=== PATIENT | male | born 1945 | race Caucasian/White ===

== ENCOUNTER → 2019-09-01 12:04 | Outpatient (BNVA) | payer MEDICARE, OTHER, SELFPAY | PROVIDERS: Family Provider Family Medicine; PCP Family Medicine; Visit Provider Nurse Practitioner Family | DX: R97.20 Elevated prostate specific antigen [PSA] (principal); N40.1 Benign prostatic hyperplasia with lower urinary tract symptoms | CPT/HCPCS: 80048; 81001; 84153 ==

== ENCOUNTER → 2019-09-08 14:52 | Outpatient (BNVA) | payer MEDICARE, OTHER, SELFPAY | PROVIDERS: Family Provider Family Medicine; PCP Family Medicine; Visit Provider Urology | DX: N40.1 Benign prostatic hyperplasia with lower urinary tract symptoms (principal); R33.9 Retention of urine, unspecified; R97.20 Elevated prostate specific antigen [PSA]; F17.290 Nicotine dependence, other tobacco product, uncomplicated | CPT/HCPCS: 81001 ==

== ENCOUNTER → 2020-01-20 08:57 | Outpatient (BNVA) | payer MEDICARE, OTHER, SELFPAY | PROVIDERS: Family Provider Family Medicine; PCP Family Medicine; Visit Provider Urology | DX: N40.1 Benign prostatic hyperplasia with lower urinary tract symptoms (principal); R33.9 Retention of urine, unspecified; R97.20 Elevated prostate specific antigen [PSA] | CPT/HCPCS: 81001 ==

== ENCOUNTER → 2020-06-20 08:46 | Outpatient (BNVA) | payer MEDICARE, OTHER, SELFPAY | PROVIDERS: Family Provider Family Medicine; PCP Family Medicine; Visit Provider Urology | DX: R33.9 Retention of urine, unspecified (principal); N40.1 Benign prostatic hyperplasia with lower urinary tract symptoms; R97.20 Elevated prostate specific antigen [PSA] | CPT/HCPCS: 80048; 81003 ==

== ENCOUNTER → 2020-12-20 08:50 | Outpatient (BNVA) | payer MEDICARE, OTHER, SELFPAY | PROVIDERS: Family Provider Family Medicine; Visit Provider Urology | DX: R97.20 Elevated prostate specific antigen [PSA] (principal); N40.1 Benign prostatic hyperplasia with lower urinary tract symptoms; R33.9 Retention of urine, unspecified | CPT/HCPCS: 81003; G0103 ==

== ENCOUNTER 2021-12-21 08:43 | Outpatient (CLI) | payer MEDICARE, OTHER, SELFPAY | END 2021-12-21 08:44 | disposition home or self-care (01) | PROVIDERS: Family Provider Family Medicine; Visit Provider Urology | DX: R97.20 Elevated prostate specific antigen [PSA] (principal); R80.0 Isolated proteinuria; N40.1 Benign prostatic hyperplasia with lower urinary tract symptoms; R33.9 Retention of urine, unspecified | CPT/HCPCS: 51741; 51798; 81003; 84153; 99213 ==

== ENCOUNTER 2022-12-14 12:06 | Outpatient (CLI) | payer MEDICARE, OTHER, SELFPAY ==
[2022-12-14 13:24] LABS: Prostate Specific AG Urology 0.89 ng/mL (0-4)
== END 2022-12-14 12:07 | disposition home or self-care (01) ==
LOC: LAB 12:11
PROVIDERS: PCP Electrodiagnostic Medicine; Visit Provider Urology
DX: R97.20 Elevated prostate specific antigen [PSA] (principal)
CPT/HCPCS: 36415; 84153

== ENCOUNTER → 2022-12-20 08:40 | Outpatient (BNVA) | payer MEDICARE, OTHER, SELFPAY | PROVIDERS: PCP Electrodiagnostic Medicine; Visit Provider Urology | DX: R97.20 Elevated prostate specific antigen [PSA] (principal); R33.9 Retention of urine, unspecified; N40.1 Benign prostatic hyperplasia with lower urinary tract symptoms | CPT/HCPCS: 51741; 51798; 81003; 99213 ==

== ENCOUNTER 2023-03-20 08:27 | Oncology outpatient (recurring) (ONCR) | payer OTHER, SELFPAY ==
[2023-03-20 09:38] LABS: Basophils # 0.1 10^3/uL (0.0-0.1); Basophils % 1.6 %; Eosinophils # 0.2 10^3/uL (0.0-0.8); Lymphocytes # 1.8 10^3/uL (0.8-4.8); Lymphocytes % 20.5 %; Mean Corpuscular HGB Conc 31.1 g/dL (30-55); Mean Corpuscular Hemoglobin 30.5 pg (27-33); Mean Corpuscular Volume 98.2 fl (82-101); Monocytes # 0.8 10^3/uL (0.2-0.9); Monocytes % 8.6 %; Neutrophils # 5.53 10^3/uL (1.8-7.7); Neutrophils % 62.3 %; Nucleated Red Blood Cells # 0.2 /100WBC; Nucleated Red Blood Cells % 1.7 %; Platelet Count 46 10^3/cmm (157-399); Red Blood Count 3.87 10^6/uL (3.85-5.65); Red Cell Distribution Width 21.1 % (12.1-15.1); White Blood Count 8.87 10^3/uL (3.29-11.43)
== END 2023-03-21 23:59 | disposition home or self-care (01) ==
PROVIDERS: Internal Medicine Medical Oncology; PCP Electrodiagnostic Medicine; Visit Provider Internal Medicine Medical Oncology
DX: D69.6 Thrombocytopenia, unspecified (principal); Z79.899 Other long term (current) drug therapy; R97.20 Elevated prostate specific antigen [PSA]; N40.1 Benign prostatic hyperplasia with lower urinary tract symptoms; R33.9 Retention of urine, unspecified
CPT/HCPCS: 36415; 85025; 99203

== ENCOUNTER 2023-03-27 06:54 | Outpatient (CLI) | payer OTHER, SELFPAY ==
--- NOTE | 2023-03-27 07:15 | US_ITS ---
WS: [id number] Limited abdomen ultrasound. HISTORY: Evaluate spleen. HISTORY: Thrombocytopenia. Spleen is normal size measuring 11.3 x 4.0 x 11.0 cm. No mass. Normal concavity at the hilum. There i s an adjacent splenule at the splenic hilum. LEFT kidney normal size measuring 12.3 cm in length. There is a simple cyst measuring 2.0 x 2.5 x 2.7 cm from the mid kidney. No obstruction of the kidney. No adjacent ascites. IMPRESSION: 1. Normal spleen. 2. Simple LEFT renal cyst.
== END 2023-03-27 06:55 | disposition home or self-care (01) ==
PROVIDERS: PCP Electrodiagnostic Medicine; Visit Provider Internal Medicine Medical Oncology
DX: D69.6 Thrombocytopenia, unspecified (principal); N28.1 Cyst of kidney, acquired
CPT/HCPCS: 76705

== ENCOUNTER 2023-04-03 14:39 | Oncology outpatient (recurring) (ONCR) | payer OTHER, SELFPAY | END 2023-04-20 23:59 | disposition home or self-care (01) | PROVIDERS: PCP Electrodiagnostic Medicine; Visit Provider Internal Medicine Medical Oncology | DX: D69.6 Thrombocytopenia, unspecified (principal); D64.9 Anemia, unspecified; R76.8 Other specified abnormal immunological findings in serum; M25.50 Pain in unspecified joint | CPT/HCPCS: 99214 ==

== ENCOUNTER 2023-05-01 13:36 | Oncology outpatient (recurring) (ONCR) | payer OTHER, SELFPAY ==
[2023-05-01 13:55] VITALS: BP 134/61; PULSE 68; RESP 16; TEMP 36.6; O2SAT 93
[2023-05-01 14:12] LABS: Basophils # 0.1 10^3/uL (0.0-0.1); Basophils % 1.7 %; Eosinophils # 0.1 10^3/uL (0.0-0.8); Eosinophils % 1.4 %; Hematocrit 37.2 % (37-53); Lymphocytes # 1.6 10^3/uL (0.8-4.8); Lymphocytes % 22.6 %; Mean Corpuscular HGB Conc 30.9 g/dL (30-55); Mean Corpuscular Hemoglobin 30.4 pg (27-33); Mean Corpuscular Volume 98.4 fl (82-101); Monocytes # 0.6 10^3/uL (0.2-0.9); Monocytes % 8.3 %; Neutrophils # 4.35 10^3/uL (1.8-7.7); Neutrophils % 61.9 %; Nucleated Red Blood Cells # 0.1 /100WBC; Platelet Count 73 10^3/cmm (157-399); Red Blood Count 3.78 10^6/uL (3.85-5.65); Red Cell Distribution Width 21.2 % (12.1-15.1); White Blood Count 7.03 10^3/uL (3.29-11.43)
[2023-05-01 14:37] LABS: Alanine Aminotransferase 20 U/L (0-41); Albumin Level 4.4 g/dL (3.5-5.2); Alkaline Phosphatase 55 U/L (40-130); Aspartate Amino Transferase 18 U/L (0-40); Blood Urea Nitrogen 13 mg/dL (8-23); C Reactive Protein 3.5 mg/L (0.0-4.9); Calcium 9.1 mg/dL (8.5-10.5); Carbon Dioxide 27 mmol/L (22-29); Chloride 103 mmol/L (98-107); Ferritin 259 ng/mL (30-400); Globulin 2.9 g/dL (1.3-4.6); Glucose 95 mg/dL (65-115); Iron 65 ug/dL (59-158); Osmolality Calculated 290 mOsm/kg (285-295); Percent Saturation 23.6 % (20-50); Sodium 140 mmol/L (136-145); Total Bilirubin 0.5 mg/dL (0.15-1.2); Total Iron Binding Capacity 275 mcg/dl; Total Protein 7.3 g/dL (6.6-8.7); Unsaturated Iron Binding 210 ug/dL (112-347)
[2023-05-01 14:47] LABS: Slide Review Slide Review Perform
[2023-05-01 14:49] LABS: Vitamin B12 1608 pg/mL (232-1245)
[2023-05-01 14:51] LABS: Erythrocyte Sedimentation Rate 17 mm/hr (0-10)
[2023-05-01 14:55] LABS: Anion Gap 14.2 (5-19); Potassium 4.2 mmol/L (3.5-5.1)
[2023-05-01 14:56] LABS: Lactate Dehydrogenase 336 U/L (135-225)
[2023-05-01 15:11] LABS: LAB Peripheral Smear Sent for Review
== END 2023-05-21 23:59 | disposition home or self-care (01) ==
PROVIDERS: PCP Electrodiagnostic Medicine; Visit Provider Internal Medicine Medical Oncology
DX: D64.9 Anemia, unspecified (principal); D69.6 Thrombocytopenia, unspecified
CPT/HCPCS: 36415; 80053; 82607; 82728; 83540; 83550; 83615; 85025; 85651; 86140; 99214

== ENCOUNTER 2023-08-06 11:07 | Oncology outpatient (recurring) (ONCR) | payer OTHER, SELFPAY ==
[2023-08-06 11:10] VITALS: BP 126/63; PULSE 92; RESP 16; TEMP 36.6; O2SAT 94
[2023-08-06 11:19] LABS: Basophils # 0.1 10^3/uL (0.0-0.1); Basophils % 1.3 %; Eosinophils # 0.1 10^3/uL (0.0-0.8); Eosinophils % 1.4 %; Hematocrit 38.1 % (37-53); Lymphocytes % 25.1 %; Mean Corpuscular HGB Conc 30.7 g/dL (30-55); Mean Corpuscular Hemoglobin 30.4 pg (27-33); Monocytes # 0.5 10^3/uL (0.2-0.9); Monocytes % 6.3 %; Neutrophils # 5.05 10^3/uL (1.8-7.7); Neutrophils % 63.8 %; Nucleated Red Blood Cells # 0.1 /100WBC; Nucleated Red Blood Cells % 1.3 %; Platelet Count 87 10^3/cmm (157-399); Red Blood Count 3.85 10^6/uL (3.85-5.65); Red Cell Distribution Width 21.4 % (12.1-15.1); White Blood Count 7.92 10^3/uL (3.29-11.43)
[2023-08-06 11:32] LABS: Slide Review Slide Review Perform
[2023-08-06 11:35] LABS: Alanine Aminotransferase 13 U/L (0-41); Albumin Level 4.1 g/dL (3.5-5.2); Alkaline Phosphatase 62 U/L (40-130); Anion Gap 12.4 (5-19); Aspartate Amino Transferase 17 U/L (0-40); Blood Urea Nitrogen 15 mg/dL (8-23); C Reactive Protein 3.9 mg/L (0.0-4.9); Calcium 9.7 mg/dL (8.5-10.5); Carbon Dioxide 28 mmol/L (22-29); Chloride 104 mmol/L (98-107); Globulin 3.7 g/dL (1.3-4.6); Glucose 104 mg/dL (65-115); Lactate Dehydrogenase 342 U/L (135-225); Osmolality Calculated 291 mOsm/kg (285-295); Potassium 4.4 mmol/L (3.5-5.1); Sodium 140 mmol/L (136-145); Total Bilirubin 0.4 mg/dL (0.15-1.2); Total Protein 7.8 g/dL (6.6-8.7)
[2023-08-06 12:21] LABS: Erythrocyte Sedimentation Rate 24 mm/hr (0-10)
== END 2023-08-21 23:59 | disposition home or self-care (01) ==
PROVIDERS: PCP Electrodiagnostic Medicine; Visit Provider Internal Medicine Medical Oncology
DX: D64.9 Anemia, unspecified (principal); D69.6 Thrombocytopenia, unspecified; M25.50 Pain in unspecified joint; R76.8 Other specified abnormal immunological findings in serum; Z79.899 Other long term (current) drug therapy
CPT/HCPCS: 36415; 80053; 83615; 85025; 85651; 86140; 99213

== ENCOUNTER 2023-10-24 12:13 | Oncology outpatient (recurring) (ONCR) | payer OTHER, SELFPAY ==
[2023-10-24 12:41] LABS: Basophils # 0.2 10^3/uL (0.0-0.1); Basophils % 1.8 %; Eosinophils # 0.1 10^3/uL (0.0-0.8); Eosinophils % 1.3 %; Hematocrit 36.8 % (37-53); Lymphocytes % 24.6 %; Mean Corpuscular HGB Conc 32.1 g/dL (30-55); Mean Corpuscular Volume 96.6 fl (82-101); Monocytes # 0.6 10^3/uL (0.2-0.9); Monocytes % 7.5 %; Neutrophils # 4.96 10^3/uL (1.8-7.7); Neutrophils % 60.9 %; Nucleated Red Blood Cells # 0.2 /100WBC; Nucleated Red Blood Cells % 2.1 %; Platelet Count 71 10^3/cmm (157-399); Red Blood Count 3.81 10^6/uL (3.85-5.65); Red Cell Distribution Width 20.9 % (12.1-15.1); White Blood Count 8.16 10^3/uL (3.29-11.43)
[2023-10-24 12:58] LABS: Alkaline Phosphatase 58 U/L (40-130); Anion Gap 14.3 (5-19); Aspartate Amino Transferase 14 U/L (0-40); Blood Urea Nitrogen 16 mg/dL (8-23); Carbon Dioxide 26 mmol/L (22-29); Chloride 100 mmol/L (98-107); Globulin 3.4 g/dL (1.3-4.6); Glucose 98 mg/dL (65-115); Lactate Dehydrogenase 337 U/L (135-225); Osmolality Calculated 283 mOsm/kg (285-295); Potassium 4.3 mmol/L (3.5-5.1); Sodium 136 mmol/L (136-145); Total Bilirubin 0.5 mg/dL (0.15-1.2); Total Protein 7.4 g/dL (6.6-8.7)
[2023-10-24 13:03] LABS: Slide Review Slide Review Perform
[2023-10-24 13:09] LABS: Alanine Aminotransferase < 5 U/L (0-41)
== END 2023-11-19 23:59 | disposition home or self-care (01) ==
PROVIDERS: PCP Electrodiagnostic Medicine; Visit Provider Internal Medicine Medical Oncology
DX: D64.9 Anemia, unspecified (principal); D69.6 Thrombocytopenia, unspecified; M25.50 Pain in unspecified joint; R76.8 Other specified abnormal immunological findings in serum; Z79.899 Other long term (current) drug therapy; Z53.9 Procedure and treatment not carried out, unspecified reason
CPT/HCPCS: 36415; 80053; 83615; 85025; 99213

== ENCOUNTER 2024-01-13 11:49 | Oncology outpatient (recurring) (ONCR) | payer OTHER, SELFPAY ==
[2024-01-13 12:13] LABS: Hematocrit 34.3 % (37-53); Mean Corpuscular HGB Conc 31.8 g/dL (30-55); Mean Corpuscular Hemoglobin 31.1 pg (27-33); Mean Corpuscular Volume 97.7 fl (82-101); Platelet Count 54 10^3/cmm (157-399); Red Blood Count 3.51 10^6/uL (3.85-5.65); Red Cell Distribution Width 20.9 % (12.1-15.1); White Blood Count 8.01 10^3/uL (3.29-11.43)
[2024-01-13 12:33] LABS: Alanine Aminotransferase 15 U/L (0-41); Albumin Level 4.3 g/dL (3.5-5.2); Alkaline Phosphatase 54 U/L (40-130); Anion Gap 14.3 (5-19); Aspartate Amino Transferase 15 U/L (0-40); Blood Urea Nitrogen 14 mg/dL (8-23); C Reactive Protein 3.6 mg/L (0.0-4.9); Carbon Dioxide 26 mmol/L (22-29); Chloride 104 mmol/L (98-107); Ferritin 276 ng/mL (30-400); Globulin 3.1 g/dL (1.3-4.6); Glucose 93 mg/dL (65-115); Iron 72 ug/dL (59-158); Osmolality Calculated 290 mOsm/kg (285-295); Percent Saturation 26.8 % (20-50); Potassium 4.3 mmol/L (3.5-5.1); Sodium 140 mmol/L (136-145); Total Bilirubin 0.5 mg/dL (0.15-1.2); Total Iron Binding Capacity 268 mcg/dl; Total Protein 7.4 g/dL (6.6-8.7); Unsaturated Iron Binding 196 ug/dL (112-347)
[2024-01-13 12:49] LABS: Vitamin B12 777 pg/mL (232-1245)
[2024-01-13 12:50] LABS: Slide Review Slide Review Perform
[2024-01-13 12:56] LABS: Absolute Segmented Neutrophil 4.6 10/cmm (1.6-7.1); Anisocytosis 1+; Band Neutrophils Absolute 1.4 10^3/cmm (0.0-1.2); Lymphocytes 21 %; Monocytes Absolute 0.2 10^3/cmm (0.1-0.6); Poikilocytosis 1+; Polychromasia 1+; Segmented Neutrophils 58 %; Total Cells Counted 100 (0-100)
[2024-01-13 12:57] LABS: Eosinophils 0 %; Erythrocyte Sedimentation Rate 18 mm/hr (0-10); Lymphocytes Absolute 1.7 10^3/cmm (1.2-3.4); Platelet Estimate Decreased (Normal)
[2024-01-13 12:58] LABS: LAB Peripheral Smear Sent for Review
== END 2024-01-19 23:59 | disposition home or self-care (01) ==
PROVIDERS: PCP Electrodiagnostic Medicine; Visit Provider Internal Medicine Medical Oncology
DX: D64.9 Anemia, unspecified (principal); D69.6 Thrombocytopenia, unspecified; M25.50 Pain in unspecified joint; R76.8 Other specified abnormal immunological findings in serum; Z79.899 Other long term (current) drug therapy; F17.290 Nicotine dependence, other tobacco product, uncomplicated
CPT/HCPCS: 36415; 80053; 82607; 82728; 83540; 83550; 85007; 85025; 85651; 86140; 99213

== ENCOUNTER → 2024-02-18 09:52 | Outpatient (BNVA) | payer OTHER, SELFPAY | PROVIDERS: PCP Electrodiagnostic Medicine; Visit Provider Internal Medicine Rheumatology | DX: Z79.899 Other long term (current) drug therapy (principal); M45.6 Ankylosing spondylitis lumbar region; M19.041 Primary osteoarthritis, right hand | CPT/HCPCS: 36415; 72100; 72202; 73130; 73630; 82306; 85651; 86140; 86200; 86431; 86480; 86704; 86803; 86812; 87340; 99204 ==

== ENCOUNTER 2024-04-13 08:22 | Outpatient (CLI) | payer OTHER, SELFPAY ==
[2024-04-13 09:11] LABS: Hematocrit 33.3 % (37-53); Mean Corpuscular HGB Conc 31.5 g/dL (30-55); Mean Corpuscular Hemoglobin 30.7 pg (27-33); Mean Corpuscular Volume 97.4 fl (82-101); Platelet Count 30 10^3/cmm (157-399); Red Blood Count 3.42 10^6/uL (3.85-5.65); Red Cell Distribution Width 21.3 % (12.1-15.1); White Blood Count 6.18 10^3/uL (3.29-11.43)
[2024-04-13 09:40] LABS: Alanine Aminotransferase 16 U/L (0-41); Albumin Level 4.4 g/dL (3.5-5.2); Alkaline Phosphatase 47 U/L (40-130); Aspartate Amino Transferase 15 U/L (0-40); C Reactive Protein 4.5 mg/L (0.0-4.9); Globulin 2.9 g/dL (1.3-4.6); Total Bilirubin 0.6 mg/dL (0.15-1.2); Total Protein 7.3 g/dL (6.6-8.7)
[2024-04-13 10:04] LABS: Erythrocyte Sedimentation Rate 19 mm/hr (0-10)
[2024-04-13 10:26] LABS: Slide Review Slide Review Perform
[2024-04-13 10:27] LABS: Absolute Neutrophil 4.4 10^3/cmm (1.4-6.5); Absolute Segmented Neutrophil 4.1 10/cmm (1.6-7.1); Band Neutrophils Absolute 0.2 10^3/cmm (0.0-1.2); Corrected White Blood Count 5.9 10^3/cmm (4.8-10.8); Eosinophils 0 %; Giant Platelets Trace; Lymphocytes 11 %; Lymphocytes Absolute 1.4 10^3/cmm (1.2-3.4); Macrocytosis 1+; Monocytes Absolute 0.2 10^3/cmm (0.1-0.6); Ovalocytes 1+; Platelet Estimate Decreased (Normal); Segmented Neutrophils 67 %; Spherocytes Trace; Total Cells Counted 100 (0-100)
== END 2024-04-13 08:23 | disposition home or self-care (01) ==
LOC: LAB 08:25
PROVIDERS: PCP Electrodiagnostic Medicine; Visit Provider Internal Medicine Rheumatology
DX: M45.9 Ankylosing spondylitis of unspecified sites in spine (principal); Z79.899 Other long term (current) drug therapy
CPT/HCPCS: 36415; 80076; 80503; 82565; 85007; 85025; 85651; 86140

== ENCOUNTER 2024-04-15 12:50 | Oncology outpatient (recurring) (ONCR) | payer OTHER, SELFPAY ==
--- OUTSIDE RECORDS SUMMARY | 2024-04-14 13:43 | XMS_ITS ---
Author Name Unknown Organization Unknown ALLERGIES AND ADVERSE REACTIONS No information ASSESSMENT No information CHIEF COMPLAINT No information MEDICATIONS No information OBJECTIVE DATA No information PHYSICAL EXAMINATION No information TREATMENT PLAN Planned Care Start Date Provider Encounter for Check-up [id number] [facility] PROBLEMS No information RESULTS No information REVIEW OF SYSTEMS No information SUBJECTIVE DATA No information VITAL SIGNS No information
--- OUTSIDE RECORDS SUMMARY | 2024-04-14 13:43 | XMS_ITS ---
Author Name Unknown Organization [facility] ALLERGIES AND ADVERSE REACTIONS No information ASSESSMENT No information CHIEF COMPLAINT No information Vital Signs Bpsitting Date Temperature Weight Height Spo2 Respiration Bmi Ti merecorded Pulse 118/70 12/21/19 22 12:00: 00 AM null 200,0.00 6,0 96 19 27.12 02:20 81 142/70 08/29/19 24 12:00: 00 AM 97.6 247,0.00 5,2 null null 45.91 12:27 80 null 024 12:00: 00 AM 97.7 215,0.00 5,10 97 null 30.85 22:58 87 142/80 024 12:00: 00 AM null 225,0.00 5,4 90 18 38.62 11:50 107 134/78 024 12:00: 00 AM 98.1 201,0.00 5,4 97 null 34.5 21:29 70 108/64 024 12:00: 00 AM 98.8 168,0.00 5,2 98 null 31.23 15:02 92 110/64 2022 12:00: 00 AM 98.2 148,0.00 5,11 95 null 20.64 12:40 54 136/80 024 12:00: 00 AM 97.8 244,0.00 5,10 null null 35.01 12:00 null 136/80 023 12:00: 00 AM 97.3 210,16.0 0 6,0 93 19 28.6 10:27 80 206/98 023 12:00: 00 AM 97.9 150,0.00 5,7 97 null 23.14 04:47 79 132/80 024 12:00: 00 AM 97.6 132,0.00 5,2 null null 24.14 00:43 70 193/88 08/29/19 24 12:00: 00 AM null 247,0.00 5,2 95 null 45.91 12:27 67 124/82 024 12:00: 00 AM 98.6 179,0.00 5,9 null 16 26.05 15:51 96 98/56 024 12:00: 00 AM 97 257,0.00 null null 20 null 13:35 80 110/72 024 12:00: 00 AM 97.9 219,0.00 6,3 96 null 27.74 12:42 77 126/88 024 12:00: 00 AM 98.8 287,0.00 5,4 97 null 49.26 22:01 96 130/70 09/26/19 24 12:00: 00 AM 98 175,0.00 5,2 96 null 32 12:04 76 OBJECTIVE DATA No information PHYSICAL EXAMINATION No information TREATMENT PLAN No information PROBLEMS No information RESULTS No information REVIEW OF SYSTEMS No information SUBJECTIVE DATA No information MEDICATIONS No information
[2024-04-14 14:51] LABS: Basophils # 0.1 10^3/uL (0.0-0.1); Basophils % 1.5 %; Eosinophils % 0.7 %; Hematocrit 33.6 % (37-53); Lymphocytes # 1.5 10^3/uL (0.8-4.8); Lymphocytes % 24.1 %; Mean Corpuscular HGB Conc 31.3 g/dL (30-55); Mean Corpuscular Hemoglobin 30.5 pg (27-33); Mean Corpuscular Volume 97.7 fl (82-101); Monocytes # 0.8 10^3/uL (0.2-0.9); Monocytes % 12.5 %; Neutrophils # 3.47 10^3/uL (1.8-7.7); Neutrophils % 56.8 %; Nucleated Red Blood Cells # 0.2 /100WBC; Nucleated Red Blood Cells % 3.8 %; Platelet Count 45 10^3/cmm (157-399); Red Blood Count 3.44 10^6/uL (3.85-5.65); Red Cell Distribution Width 21.6 % (12.1-15.1)
[2024-04-14 14:55] LABS: Erythrocyte Sedimentation Rate 19 mm/hr (0-10)
[2024-04-14 15:02] LABS: Slide Review Slide Review Perform
[2024-04-14 15:08] LABS: Alanine Aminotransferase 15 U/L (0-41); Albumin Level 4.2 g/dL (3.5-5.2); Alkaline Phosphatase 48 U/L (40-130); Anion Gap 15.1 (5-19); Aspartate Amino Transferase 19 U/L (0-40); Blood Urea Nitrogen 18 mg/dL (8-23); C Reactive Protein 4.2 mg/L (0.0-4.9); Calcium 8.9 mg/dL (8.5-10.5); Carbon Dioxide 25 mmol/L (22-29); Chloride 99 mmol/L (98-107); Glucose 102 mg/dL (65-115); Lactate Dehydrogenase 419 U/L (135-225); Osmolality Calculated 282 mOsm/kg (285-295); Potassium 4.1 mmol/L (3.5-5.1); Sodium 135 mmol/L (136-145); Total Bilirubin 0.5 mg/dL (0.15-1.2); Total Protein 7.2 g/dL (6.6-8.7)
== END 2024-04-20 23:59 | disposition home or self-care (01) ==
PROVIDERS: PCP Electrodiagnostic Medicine; Visit Provider Internal Medicine Medical Oncology
DX: D64.9 Anemia, unspecified (principal); D69.6 Thrombocytopenia, unspecified; F17.290 Nicotine dependence, other tobacco product, uncomplicated
CPT/HCPCS: 36415; 80053; 83615; 85025; 85651; 86140; 99214

== ENCOUNTER 2024-04-30 12:00 | Outpatient (CLI) | payer MEDICARE, OTHER, SELFPAY ==
--- NOTE | 2024-04-30 11:47 | USCV_ITS ---
Js Vinh Age: 79 Gender: M : 1945 Exam Date: 04/30/2024 11:58 Ordering Phys: Jewel Erickson DO Technologist: Kiley Teixeira Exam Location: [facility] [place] Indication: CARDIOMEGLY BP: 132 / 71 HR: 74 Rhythm: Atrial fibrillation Technical Quality: Adequate MEASUREMENTS (Male / Female) Normal Values 2D ECHO LV Diastolic Diameter PLAX 3.6 cm 4.2 - 5.9 / 3.9 - 5.3 cm IVS Diastolic Thickness 1.2 cm 0.6 - 1.0 / 0.6 - 0.9 cm IVS Systolic Thickness 1.5 cm LVPW Diastolic Thickness 2.1 cm 0.6 - 1.0 / 0.6 - 0.9 cm LVPW Systolic Thickness 2.2 cm LVOT Diameter 2.0 cm LV Ejection Fraction 2D Teich 66.3 % LV Ejection Fraction MOD 4C 58.3 % LV Ejection Fraction MOD 2C 58.9 % LV Ejection Fraction 2C AL 59.3 % LA Diameter 3.9 cm RA Systolic Volume 4C AL 35.4 ml RA Systolic Volume 4C MOD 34.8 ml LA Sys Volume AL 47.5 cm cubed LA Sys Volume Index AL 21.9 cm cubed/m squared Aorta at Sinotubular Diameter 2.8 cm IVC Diameter 1.8 cm M-MODE LA Ao Ratio MM 1.1 AV Cusp Separation MM 1.7 cm DOPPLER AV Peak Velocity 196.0 cm/s LVOT Peak Velocity 131.0 cm/s AV Area Cont Eq vti 2.2 cm squared AV Area Cont Eq pk 2.1 cm squared MV Peak Velocity 112.0 cm/s MV Area PHT 3.0 cm squared Mitral E to A Ratio 0.9 TR Peak Velocity 130.0 cm/s TR Peak Gradient 6.8 mmHg TR Mean Velocity 105.0 cm/s TR Mean Gradient 4.8 mmHg TR Velocity Time Integral 29.0 cm TV Peak E Velocity 63.0 cm/s Right Atrial Pressure 3.0 mmHg Pulmonary Artery Systolic Pressu 9.8 mmHg PV Peak Velocity 110.0 cm/s RV Ejection Time 0.3 s FINDINGS Left Ventricle Normal left ventricular size and systolic function, EF 68%.no regional wall motion abnormalities. Right Ventricle The right ventricle is normal in size and function. Right Atrium The right atrium is normal in size. Left Atrium The left atrium is normal in size. Mitral Valve No gross abnormalities noted Aortic Valve Thickened noncoronary cusp of the aortic valve. Features of aortic valve sclerosis Tricuspid Valve No gross abnormalities noted Pulmonic Valve Pulmonic valve not well visualized. Pericardium Normal pericardium without effusion. Aorta Normal ascending aorta dimension. IVC The inferior vena cava appears normal. CONCLUSIONS Normal left ventricular size and systolic function, EF 68%.no regional wall motion abnormalities Thickened noncoronary cusp of the aortic valve. Features of aortic valve sclerosis Normal cardiac chamber sizes. No intracardiac masses No pericardial effusion No similar previous studies are available for comparison Dr Tanmay Huston MD [facility] (Electronically Signed) Final Date: 01 May 2024 15:46 S
== END 2024-04-30 12:01 | disposition home or self-care (01) ==
PROVIDERS: PCP Electrodiagnostic Medicine; Visit Provider Electrodiagnostic Medicine
DX: I51.7 Cardiomegaly (principal); I35.2 Nonrheumatic aortic (valve) stenosis with insufficiency
CPT/HCPCS: 93306

== ENCOUNTER 2024-05-27 13:16 | Oncology outpatient (recurring) (ONCR) | payer OTHER, SELFPAY ==
[2024-05-27 13:42] LABS: Mean Corpuscular Hemoglobin 30.1 pg (27-33); Mean Corpuscular Volume 97.2 fl (82-101); Platelet Count 38 10^3/cmm (157-399); Red Blood Count 3.19 10^6/uL (3.85-5.65); White Blood Count 5.45 10^3/uL (3.29-11.43)
[2024-05-27 14:01] LABS: Alanine Aminotransferase 16 U/L (0-41); Albumin Level 4.2 g/dL (3.5-5.2); Alkaline Phosphatase 56 U/L (40-130); Anion Gap 15.2 (5-19); Aspartate Amino Transferase 16 U/L (0-40); Blood Urea Nitrogen 15 mg/dL (8-23); Calcium 8.7 mg/dL (8.5-10.5); Carbon Dioxide 26 mmol/L (22-29); Chloride 101 mmol/L (98-107); Globulin 2.8 g/dL (1.3-4.6); Glucose 107 mg/dL (65-115); Osmolality Calculated 287 mOsm/kg (285-295); Potassium 4.2 mmol/L (3.5-5.1); Sodium 138 mmol/L (136-145); Total Bilirubin 0.4 mg/dL (0.15-1.2)
[2024-05-27 14:21] LABS: Absolute Eosinophils 0.2 10^3/cmm (0.0-0.7); Absolute Segmented Neutrophil 3.2 10/cmm (1.6-7.1); Band Neutrophils Absolute 0.3 10^3/cmm (0.0-1.2); Eosinophils 3 %; Lymphocytes 25 %; Lymphocytes Absolute 1.5 10^3/cmm (1.2-3.4); Monocytes Absolute 0.1 10^3/cmm (0.1-0.6); Segmented Neutrophils 58 %; Total Cells Counted 100 (0-100)
[2024-05-27 14:24] LABS: Anisocytosis 2+; Basophilic Stippling Trace; Poikilocytosis 1+; Polychromasia 1+; Schistocytes Trace
[2024-05-27 14:25] LABS: Absolute Neutrophil 3.5 10^3/cmm (1.4-6.5); Platelet Estimate Decreased (Normal)
== END 2024-06-20 23:59 | disposition home or self-care (01) ==
LOC: ONCMED 13:17
PROVIDERS: Nurse Practitioner Family; PCP Electrodiagnostic Medicine; Visit Provider Internal Medicine Medical Oncology
DX: D69.6 Thrombocytopenia, unspecified
CPT/HCPCS: 36415; 80053; 85007; 85025

== ENCOUNTER → 2024-06-23 09:59 | Outpatient (BNVA) | payer OTHER, SELFPAY | PROVIDERS: PCP Electrodiagnostic Medicine; Visit Provider Internal Medicine Rheumatology | DX: Z87.39 Personal history of other diseases of the musculoskeletal system and connective tissue (principal); M54.89 Other dorsalgia; M25.50 Pain in unspecified joint; G89.29 Other chronic pain | CPT/HCPCS: 99214 ==

== ENCOUNTER 2024-08-17 11:50 | Oncology outpatient (recurring) (ONCR) | payer OTHER, SELFPAY ==
[2024-08-17 12:12] LABS: Basophils # 0.1 10^3/uL (0.0-0.1); Basophils % 1.5 %; Eosinophils # 0.1 10^3/uL (0.0-0.8); Eosinophils % 0.9 %; Hematocrit 28.4 % (37-53); Lymphocytes # 1.2 10^3/uL (0.8-4.8); Lymphocytes % 16.5 %; Mean Corpuscular Hemoglobin 31.1 pg (27-33); Mean Corpuscular Volume 100.4 fl (82-101); Monocytes # 0.8 10^3/uL (0.2-0.9); Monocytes % 10.6 %; Neutrophils # 4.88 10^3/uL (1.8-7.7); Neutrophils % 65.5 %; Nucleated Red Blood Cells # 0.3 /100WBC; Nucleated Red Blood Cells % 3.4 %; Platelet Count 34 10^3/cmm (157-399); Red Blood Count 2.83 10^6/uL (3.85-5.65); Red Cell Distribution Width 23.9 % (12.1-15.1); White Blood Count 7.45 10^3/uL (3.29-11.43)
[2024-08-17 12:28] LABS: Alanine Aminotransferase 17 U/L (0-41); Albumin Level 4.4 g/dL (3.5-5.2); Alkaline Phosphatase 52 U/L (40-130); Anion Gap 14.2 (5-19); Aspartate Amino Transferase 17 U/L (0-40); Blood Urea Nitrogen 15 mg/dL (8-23); Carbon Dioxide 28 mmol/L (22-29); Chloride 99 mmol/L (98-107); Creatinine Clr Calc Pharmacy 62.8202; Globulin 2.7 g/dL (1.3-4.6); Glucose 100 mg/dL (65-115); Osmolality Calculated 285 mOsm/kg (285-295); Potassium 4.2 mmol/L (3.5-5.1); Sodium 137 mmol/L (136-145); Total Bilirubin 0.5 mg/dL (0.15-1.2); Total Protein 7.1 g/dL (6.6-8.7)
[2024-08-17 12:34] LABS: Slide Review Slide Review Perform
== END 2024-08-21 23:59 | disposition home or self-care (01) ==
PROVIDERS: Nurse Practitioner Family; PCP Electrodiagnostic Medicine; Visit Provider Internal Medicine Medical Oncology
DX: D69.6 Thrombocytopenia, unspecified (principal); D75.81 Myelofibrosis; D64.9 Anemia, unspecified; F17.220 Nicotine dependence, chewing tobacco, uncomplicated
CPT/HCPCS: 36415; 80053; 85025; 99214

== ENCOUNTER 2024-09-28 11:01 | Oncology outpatient (recurring) (ONCR) | payer OTHER, SELFPAY ==
[2024-09-28 11:21] LABS: Basophils # 0.1 10^3/uL (0.0-0.1); Basophils % 1.2 %; Eosinophils # 0.1 10^3/uL (0.0-0.8); Eosinophils % 0.7 %; Hematocrit 29.8 % (37-53); Lymphocytes # 1.4 10^3/uL (0.8-4.8); Lymphocytes % 18.4 %; Mean Corpuscular HGB Conc 29.9 g/dL (30-55); Mean Corpuscular Hemoglobin 29.1 pg (27-33); Mean Corpuscular Volume 97.4 fl (82-101); Monocytes # 0.7 10^3/uL (0.2-0.9); Monocytes % 9.1 %; Neutrophils # 4.87 10^3/uL (1.8-7.7); Neutrophils % 66.4 %; Nucleated Red Blood Cells # 0.2 /100WBC; Nucleated Red Blood Cells % 2.3 %; Platelet Count 43 10^3/cmm (157-399); Red Blood Count 3.06 10^6/uL (3.85-5.65); Red Cell Distribution Width 24.6 % (12.1-15.1); White Blood Count 7.34 10^3/uL (3.29-11.43)
[2024-09-28 11:38] LABS: Alanine Aminotransferase 23 U/L (0-41); Albumin Level 4.3 g/dL (3.5-5.2); Alkaline Phosphatase 55 U/L (40-130); Anion Gap 12.1 (5-19); Aspartate Amino Transferase 18 U/L (0-40); Blood Urea Nitrogen 17 mg/dL (8-23); Calcium 8.9 mg/dL (8.5-10.5); Carbon Dioxide 28 mmol/L (22-29); Chloride 103 mmol/L (98-107); Globulin 2.8 g/dL (1.3-4.6); Glucose 79 mg/dL (65-115); Osmolality Calculated 288 mOsm/kg (285-295); Potassium 4.1 mmol/L (3.5-5.1); Sodium 139 mmol/L (136-145); Total Bilirubin 0.4 mg/dL (0.15-1.2); Total Protein 7.1 g/dL (6.6-8.7)
[2024-09-28 11:43] LABS: Slide Review Slide Review Perform
[2024-09-28 11:54] LABS: Vitamin B12 697 pg/mL (232-1245)
[2024-09-28 12:07] LABS: Folate Level > 20.0 ng/mL (4.5-32.2)
== END 2024-10-19 23:59 | disposition home or self-care (01) ==
PROVIDERS: PCP Electrodiagnostic Medicine; Visit Provider Internal Medicine Medical Oncology
DX: D69.6 Thrombocytopenia, unspecified (principal); D64.9 Anemia, unspecified; F17.220 Nicotine dependence, chewing tobacco, uncomplicated; D75.9 Disease of blood and blood-forming organs, unspecified; Z79.899 Other long term (current) drug therapy
CPT/HCPCS: 36415; 80053; 82607; 82746; 85025; 99214

== ENCOUNTER → 2024-11-03 09:22 | Outpatient (BNVA) | payer OTHER, SELFPAY | PROVIDERS: PCP Electrodiagnostic Medicine; Visit Provider Internal Medicine Rheumatology | DX: Z87.39 Personal history of other diseases of the musculoskeletal system and connective tissue (principal); M54.89 Other dorsalgia; M25.50 Pain in unspecified joint | CPT/HCPCS: 99214 ==

== ENCOUNTER 2024-11-17 10:15 | Oncology outpatient (recurring) (ONCR) | payer OTHER, SELFPAY ==
[2024-10-26 07:43] LABS: Basophils # 0.1 10^3/uL (0.0-0.1); Basophils % 0.9 %; Eosinophils % 0.3 %; Hematocrit 28.5 % (37-53); Lymphocytes # 0.8 10^3/uL (0.8-4.8); Mean Corpuscular HGB Conc 30.2 g/dL (30-55); Mean Corpuscular Hemoglobin 28.7 pg (27-33); Monocytes # 0.6 10^3/uL (0.2-0.9); Monocytes % 5.7 %; Neutrophils # 7.94 10^3/uL (1.8-7.7); Neutrophils % 80.9 %; Nucleated Red Blood Cells # 0.1 /100WBC; Nucleated Red Blood Cells % 1.3 %; Platelet Count 32 10^3/cmm (157-399); Red Cell Distribution Width 25.4 % (12.1-15.1); White Blood Count 9.81 10^3/uL (3.29-11.43)
[2024-10-26 08:01] LABS: Alanine Aminotransferase 15 U/L (0-41); Albumin Level 3.9 g/dL (3.5-5.2); Alkaline Phosphatase 62 U/L (40-130); Anion Gap 13.6 (5-19); Aspartate Amino Transferase 16 U/L (0-40); Blood Urea Nitrogen 24 mg/dL (8-23); Calcium 8.6 mg/dL (8.5-10.5); Carbon Dioxide 25 mmol/L (22-29); Chloride 103 mmol/L (98-107); Globulin 3.2 g/dL (1.3-4.6); Glucose 112 mg/dL (65-115); Osmolality Calculated 289 mOsm/kg (285-295); Potassium 4.6 mmol/L (3.5-5.1); Sodium 137 mmol/L (136-145); Total Bilirubin 0.7 mg/dL (0.15-1.2); Total Protein 7.1 g/dL (6.6-8.7)
[2024-10-26 08:08] LABS: Slide Review Slide Review Perform
[2024-11-09 14:31] LABS: Mean Corpuscular Hemoglobin 28.1 pg (27-33); Mean Corpuscular Volume 93.8 fl (82-101); Platelet Count 57 10^3/cmm (157-399); Red Cell Distribution Width 25.5 % (12.1-15.1); White Blood Count 8.37 10^3/uL (3.29-11.43)
[2024-11-09 14:50] LABS: Alanine Aminotransferase 24 U/L (0-41); Albumin Level 4.2 g/dL (3.5-5.2); Alkaline Phosphatase 74 U/L (40-130); Anion Gap 13.8 (5-19); Aspartate Amino Transferase 16 U/L (0-40); Blood Urea Nitrogen 17 mg/dL (8-23); Calcium 9.2 mg/dL (8.5-10.5); Carbon Dioxide 27 mmol/L (22-29); Chloride 100 mmol/L (98-107); Creatinine Clr Calc Pharmacy 54.4696; Globulin 3.6 g/dL (1.3-4.6); Glucose 120 mg/dL (65-115); Osmolality Calculated 287 mOsm/kg (285-295); Potassium 3.8 mmol/L (3.5-5.1); Sodium 137 mmol/L (136-145); Total Bilirubin 0.5 mg/dL (0.15-1.2); Total Protein 7.8 g/dL (6.6-8.7)
[2024-11-09 14:59] LABS: Slide Review Slide Review Perform
[2024-11-09 15:00] LABS: Band Neutrophils Absolute 0.3 10^3/cmm (0.0-1.2); Lymphocytes 18 %; Monocytes Absolute 0.2 10^3/cmm (0.1-0.6); Segmented Neutrophils 72 %; Total Cells Counted 100 (0-100)
[2024-11-09 15:01] LABS: Absolute Eosinophils 0.1 10^3/cmm (0.0-0.7); Absolute Neutrophil 6.4 10^3/cmm (1.4-6.5); Eosinophils 1 %; Platelet Estimate Decreased (Normal)
[2024-11-09 15:02] LABS: Anisocytosis 2+; Microcytosis 1+
[2024-11-25 14:34] LABS: CALR Exon 9 Mutation NOT DETECTED (NOT DETECTED); JAK2 Exon 12 Mutation NOT DETECTED (NOT DETECTED); JAK2 V617 Block Specimen ID blood; JAK2 V617 Clinical Indication myelofibrosis; JAK2 V617 Mutation NOT DETECTED (NOT DETECTED); MPL Exon 10 Mutation NOT DETECTED (NOT DETECTED); Specimen Source blood
== END 2024-11-18 23:59 | disposition home or self-care (01) ==
PROVIDERS: Nurse Practitioner Family; PCP Electrodiagnostic Medicine; Visit Provider Internal Medicine Medical Oncology
DX: D75.81 Myelofibrosis; Z53.9 Procedure and treatment not carried out, unspecified reason
CPT/HCPCS: 36415; 80053; 81219; 81270; 81279; 81339; 85007; 85025; 99214; 99215

== ENCOUNTER 2024-12-01 12:11 | Oncology outpatient (recurring) (ONCR) | payer OTHER, SELFPAY ==
[2024-11-30 09:45] LABS: Hematocrit 30.7 % (37-53); Mean Corpuscular HGB Conc 29.3 g/dL (30-55); Mean Corpuscular Hemoglobin 27.8 pg (27-33); Mean Corpuscular Volume 94.8 fl (82-101); Platelet Count 57 10^3/cmm (157-399); Red Blood Count 3.24 10^6/uL (3.85-5.65); Red Cell Distribution Width 25.6 % (12.1-15.1); White Blood Count 6.52 10^3/uL (3.29-11.43)
[2024-11-30 10:05] LABS: Alanine Aminotransferase 27 U/L (0-41); Albumin Level 4.6 g/dL (3.5-5.2); Alkaline Phosphatase 52 U/L (40-130); Anion Gap 18.3 (5-19); Aspartate Amino Transferase 20 U/L (0-40); Blood Urea Nitrogen 18 mg/dL (8-23); Calcium 9.5 mg/dL (8.5-10.5); Carbon Dioxide 24 mmol/L (22-29); Chloride 103 mmol/L (98-107); Globulin 3.3 g/dL (1.3-4.6); Glucose 79 mg/dL (65-115); Osmolality Calculated 293 mOsm/kg (285-295); Potassium 4.3 mmol/L (3.5-5.1); Sodium 141 mmol/L (136-145); Total Bilirubin 0.6 mg/dL (0.15-1.2); Total Protein 7.9 g/dL (6.6-8.7)
[2024-11-30 10:57] LABS: Absolute Eosinophils 0.1 10^3/cmm (0.0-0.7); Absolute Segmented Neutrophil 4.2 10/cmm (1.6-7.1); Band Neutrophils Absolute 0.1 10^3/cmm (0.0-1.2); Eosinophils 1 %; Lymphocytes 28 %; Lymphocytes Absolute 2.2 10^3/cmm (1.2-3.4); Segmented Neutrophils 64 %; Slide Review Slide Review Perform; Total Cells Counted 100 (0-100)
[2024-11-30 10:58] LABS: Absolute Neutrophil 4.3 10^3/cmm (1.4-6.5); Corrected White Blood Count 6.1 10^3/cmm (4.8-10.8); Platelet Estimate Decreased (Normal)
== END 2024-12-19 23:59 | disposition home or self-care (01) ==
PROVIDERS: PCP Electrodiagnostic Medicine; Visit Provider Internal Medicine Medical Oncology
DX: D75.81 Myelofibrosis (principal); D69.6 Thrombocytopenia, unspecified; D64.9 Anemia, unspecified
CPT/HCPCS: 36415; 80053; 85007; 85025; 99214

== ENCOUNTER 2025-01-18 09:15 | Oncology outpatient (recurring) (ONCR) | payer OTHER, SELFPAY ==
[2024-12-28 14:46] LABS: Hematocrit 28.1 % (37-53); Mean Corpuscular HGB Conc 29.9 g/dL (30-55); Mean Corpuscular Hemoglobin 28.9 pg (27-33); Mean Corpuscular Volume 96.6 fl (82-101); Platelet Count 65 10^3/cmm (157-399); Red Blood Count 2.91 10^6/uL (3.85-5.65); Red Cell Distribution Width 26.5 % (12.1-15.1); White Blood Count 8.19 10^3/uL (3.29-11.43)
[2024-12-28 15:01] LABS: Alanine Aminotransferase 35 U/L (0-41); Albumin Level 4.4 g/dL (3.5-5.2); Alkaline Phosphatase 41 U/L (40-130); Anion Gap 16.4 (5-19); Aspartate Amino Transferase 20 U/L (0-40); Blood Urea Nitrogen 24 mg/dL (8-23); Carbon Dioxide 21 mmol/L (22-29); Chloride 104 mmol/L (98-107); Globulin 2.8 g/dL (1.3-4.6); Glucose 97 mg/dL (65-115); Osmolality Calculated 288 mOsm/kg (285-295); Potassium 4.4 mmol/L (3.5-5.1); Sodium 137 mmol/L (136-145); Total Bilirubin 0.8 mg/dL (0.15-1.2); Total Protein 7.2 g/dL (6.6-8.7)
[2024-12-28 15:11] LABS: Absolute Segmented Neutrophil 3.8 10/cmm (1.6-7.1); Segmented Neutrophils 46 %; Slide Review Slide Review Perform; Total Cells Counted 100 (0-100)
[2024-12-28 15:12] LABS: Absolute Eosinophils 0.1 10^3/cmm (0.0-0.7); Absolute Neutrophil 3.9 10^3/cmm (1.4-6.5); Anisocytosis 2+; Band Neutrophils Absolute 0.2 10^3/cmm (0.0-1.2); Basophils Absolute 0.2 10^3/cmm (0.0-0.2); Corrected White Blood Count 7.9 10^3/cmm (4.8-10.8); Eosinophils 1 %; Giant Platelets 1+; Lymphocytes 38 %; Lymphocytes Absolute 3.2 10^3/cmm (1.2-3.4); Monocytes Absolute 0.2 10^3/cmm (0.1-0.6); Platelet Estimate Decreased (Normal); Polychromasia 1+
[2024-12-28 15:13] LABS: Smudge Cells Trace
[2025-01-11 14:12] LABS: Basophils # 0.1 10^3/uL (0.0-0.1); Basophils % 1.3 %; Eosinophils # 0.1 10^3/uL (0.0-0.8); Hematocrit 24.2 % (37-53); Lymphocytes # 1.2 10^3/uL (0.8-4.8); Lymphocytes % 14.1 %; Mean Corpuscular HGB Conc 31.4 g/dL (30-55); Mean Corpuscular Volume 95.7 fl (82-101); Monocytes % 11.8 %; Neutrophils # 5.33 10^3/uL (1.8-7.7); Neutrophils % 64.2 %; Nucleated Red Blood Cells # 0.7 /100WBC; Nucleated Red Blood Cells % 8.6 %; Platelet Count 77 10^3/cmm (157-399); Red Blood Count 2.53 10^6/uL (3.85-5.65); Red Cell Distribution Width 27.5 % (12.1-15.1)
[2025-01-11 14:28] LABS: Albumin Level 4.3 g/dL (3.5-5.2); Alkaline Phosphatase 52 U/L (40-130); Anion Gap 17.5 (5-19); Blood Urea Nitrogen 18 mg/dL (8-23); Calcium 9.4 mg/dL (8.5-10.5); Carbon Dioxide 24 mmol/L (22-29); Chloride 101 mmol/L (98-107); Globulin 3.2 g/dL (1.3-4.6); Glucose 103 mg/dL (65-115); Osmolality Calculated 288 mOsm/kg (285-295); Potassium 4.5 mmol/L (3.5-5.1); Sodium 138 mmol/L (136-145); Total Bilirubin 0.7 mg/dL (0.15-1.2); Total Protein 7.5 g/dL (6.6-8.7)
[2025-01-11 14:41] LABS: Alanine Aminotransferase < 5 U/L (0-41); Aspartate Amino Transferase 5 U/L (0-40)
[2025-01-11 14:54] LABS: Slide Review Slide Review Perform
[2025-01-12 08:12] VITALS: BP 126/66; PULSE 71; RESP 17; TEMP 36.3; O2SAT 96
[2025-01-12] MEDS: acetaminophen 325 mg Tablet 650 MG PO (08:25)
[2025-01-12] MEDS: diphenhydrAMINE 25 mg Capsule PO (08:27)
[2025-01-12] MEDS: sodium chloride 0.9% 250 mL Bag IV (08:35)
[2025-01-12 08:44] VITALS: BP 120/57; PULSE 69; RESP 18; TEMP 36.7; O2SAT 96
[2025-01-12 08:55] VITALS: BP 122/57; PULSE 66; RESP 17; TEMP 36.7; O2SAT 95
[2025-01-12 09:45] VITALS: BP 138/63; PULSE 64; RESP 18; TEMP 36.4; O2SAT 98
--- NOTE | 2025-01-15 07:00 | CT_ITS ---
WS: [id number] CT chest wo con [id number] HISTORY: mass on left mid back; sudden onset TECHNIQUE: Axial imaging performed through the thorax. Coronal and sagittal reformats are submitted. All CT scans at [facility] use at least one of these dose optimization techniques: automated exposure control; mA and/or kV adjustment per patient size (includes targeted exams where dose is matched to clinical indication); or iterative reconstruction. CONTRAST: None DLP: 366.09 mGy.cm COMPARISON: None available. Lungs and central airway: Hyperexpanded lungs with paraseptal emphysema. Scarring and bullous disease in the anterior RIGHT upper lobe. No mass or pulmonary nodule identified. Mild dependent changes at the lung bases. Pleura: Normal. No pleural effusion. Heart and pericardium: Normal size heart with no pericardial effusion. Mediastinum and robert: No mediastinum or hilar adenopathy. Vessels: Mild atherosclerosis aorta. No aneurysm. Normal sized pulmonary artery. Chest wall and lower neck: Mild gynecomastia. Marker is placed along the posterior LEFT mid thorax at the level of the mass and palpable abnormality. Marker is adjacent to the inferior scapula. No obvious mass is identified. There may be a small amount of edema associated with the rhomboid muscle but there is mass. LEFT rhomboid is slightly larger than the RIGHT. Upper abdomen: Normal. Osseous structures: Increased in lumbar lordosis. No bone destruction. CT/CT chest wo con [id number] IMPRESSION: 1. Very minimal enlargement with adjacent edema involving the LEFT rhomboid mu scle which corresponds to the area of pain and palpable abnormality. No associa eduarda mass identified. This may be secondary to mild sprain or recent injury. If there is no improvement consider additional evaluation. MRI may be most helpful with and without contrast for soft tissue evaluation. 2. Mild emphysema. 3. No osseous destruction.
[2025-01-18 09:09] LABS: Hematocrit 28.1 % (37-53); Mean Corpuscular HGB Conc 30.6 g/dL (30-55); Mean Corpuscular Hemoglobin 29.1 pg (27-33); Mean Corpuscular Volume 94.9 fl (82-101); Platelet Count 44 10^3/cmm (157-399); Red Blood Count 2.96 10^6/uL (3.85-5.65); Red Cell Distribution Width 25.7 % (12.1-15.1); White Blood Count 5.55 10^3/uL (3.29-11.43)
[2025-01-18 09:54] LABS: Slide Review Slide Review Perform
[2025-01-18 09:59] LABS: Absolute Eosinophils 0.1 10^3/cmm (0.0-0.7); Absolute Segmented Neutrophil 2.6 10/cmm (1.6-7.1); Band Neutrophils Absolute 0.6 10^3/cmm (0.0-1.2); Corrected White Blood Count 5.1 10^3/cmm (4.8-10.8); Eosinophils 2 %; Lymphocytes 34 %; Lymphocytes Absolute 1.9 10^3/cmm (1.2-3.4); Monocytes Absolute 0.1 10^3/cmm (0.1-0.6); Segmented Neutrophils 47 %; Total Cells Counted 100 (0-100)
[2025-01-18 10:01] LABS: Absolute Neutrophil 3.2 10^3/cmm (1.4-6.5); Anisocytosis 1+; Macrocytosis Trace; Platelet Estimate Decreased (Normal); Poikilocytosis Trace
== END 2025-01-18 23:59 | disposition home or self-care (01) ==
PROVIDERS: Nurse Practitioner; PCP Electrodiagnostic Medicine; Visit Provider Nurse Practitioner Family
DX: Z53.9 Procedure and treatment not carried out, unspecified reason; D75.81 Myelofibrosis; F17.220 Nicotine dependence, chewing tobacco, uncomplicated; R22.2 Localized swelling, mass and lump, trunk; D64.9 Anemia, unspecified; D69.6 Thrombocytopenia, unspecified; Z79.899 Other long term (current) drug therapy
CPT/HCPCS: 36415; 36430; 71250; 80053; 85007; 85025; 86850; 86900; 86920; 99214; J7050; J9999; P9040

== ENCOUNTER 2025-02-15 12:30 | Oncology outpatient (recurring) (ONCR) | payer OTHER, SELFPAY ==
[2025-02-01 14:16] LABS: Hematocrit 27.1 % (37-53); Hemoglobin 8.40 g/dL (11.27-16.99); Mean Corpuscular HGB Conc 31.0 g/dL (30-55); Mean Corpuscular Hemoglobin 29.2 pg (27-33); Mean Corpuscular Volume 94.1 fl (82-101); Platelet Count 60 10^3/cmm (157-399); Red Blood Count 2.88 10^6/uL (3.85-5.65); White Blood Count 8.54 10^3/uL (3.29-11.43)
[2025-02-01 14:39] LABS: Alanine Aminotransferase 25 U/L (0-41); Albumin Level 4.3 g/dL (3.5-5.2); Alkaline Phosphatase 47 U/L (40-130); Anion Gap 17.3 (5-19); Aspartate Amino Transferase 18 U/L (0-40); Blood Urea Nitrogen 18 mg/dL (8-23); Calcium 8.6 mg/dL (8.5-10.5); Carbon Dioxide 25 mmol/L (22-29); Chloride 102 mmol/L (98-107); Creatinine Clr Calc Pharmacy 46.5820; Ferritin 286 ng/mL (30-400); Globulin 2.8 g/dL (1.3-4.6); Glucose 84 mg/dL (65-115); Iron 72 ug/dL (59-158); Osmolality Calculated 291 mOsm/kg (285-295); Potassium 4.3 mmol/L (3.5-5.1); Sodium 140 mmol/L (136-145); Total Iron Binding Capacity 238 mcg/dl; Total Protein 7.1 g/dL (6.6-8.7); Unsaturated Iron Binding 166 ug/dL (112-347)
[2025-02-01 14:52] LABS: Vitamin B12 707 pg/mL (232-1245)
[2025-02-01 15:09] LABS: Slide Review Slide Review Perform
[2025-02-01 15:10] LABS: Absolute Segmented Neutrophil 4.4 10/cmm (1.6-7.1); Total Cells Counted 100 (0-100)
[2025-02-01 15:11] LABS: Anisocytosis 2+; Macrocytosis Trace; Poikilocytosis Trace; Polychromasia 1+
[2025-02-01 15:13] LABS: Band Neutrophils Absolute 0.6 10^3/cmm (0.0-1.2)
[2025-02-07 11:05] LABS: CALR Exon 9 Mutation NOT DETECTED (NOT DETECTED); JAK2 Exon 12 Mutation NOT DETECTED (NOT DETECTED); JAK2 V617 Block Specimen ID blood; JAK2 V617 Clinical Indication myelofibrosis; MPL Exon 10 Mutation NOT DETECTED (NOT DETECTED); Specimen Source blood
[2025-02-15 13:01] LABS: Hematocrit 27.3 % (37-53); Hemoglobin 8.40 g/dL (11.27-16.99); Mean Corpuscular HGB Conc 30.8 g/dL (30-55); Mean Corpuscular Hemoglobin 29.5 pg (27-33); Mean Corpuscular Volume 95.8 fl (82-101); Platelet Count 55 10^3/cmm (157-399); Red Blood Count 2.85 10^6/uL (3.85-5.65); White Blood Count 7.48 10^3/uL (3.29-11.43)
[2025-02-15 13:16] LABS: Alanine Aminotransferase 26 U/L (0-41); Albumin Level 4.3 g/dL (3.5-5.2); Alkaline Phosphatase 51 U/L (40-130); Anion Gap 16.1 (5-19); Aspartate Amino Transferase 18 U/L (0-40); Blood Urea Nitrogen 18 mg/dL (8-23); Calcium 8.9 mg/dL (8.5-10.5); Carbon Dioxide 26 mmol/L (22-29); Chloride 102 mmol/L (98-107); Creatinine Clr Calc Pharmacy 52.8815; Globulin 2.8 g/dL (1.3-4.6); Glucose 78 mg/dL (65-115); Osmolality Calculated 291 mOsm/kg (285-295); Potassium 4.1 mmol/L (3.5-5.1); Sodium 140 mmol/L (136-145); Total Protein 7.1 g/dL (6.6-8.7)
[2025-02-15 14:16] LABS: Absolute Segmented Neutrophil 4.8 10/cmm (1.6-7.1); Band Neutrophils Absolute 0.1 10^3/cmm (0.0-1.2); Slide Review Slide Review Perform; Total Cells Counted 100 (0-100)
[2025-02-15 14:17] LABS: Anisocytosis 3+; Atypical Lymphs 0.0 % (0-5); Giant Platelets 2+; Polychromasia 1+
[2025-02-15 14:18] LABS: Smudge Cells Trace
== END 2025-02-18 23:59 | disposition home or self-care (01) ==
PROVIDERS: Internal Medicine Medical Oncology; PCP Electrodiagnostic Medicine; Visit Provider Nurse Practitioner Family
DX: D75.81 Myelofibrosis; F17.220 Nicotine dependence, chewing tobacco, uncomplicated; D64.9 Anemia, unspecified; D69.6 Thrombocytopenia, unspecified; D75.9 Disease of blood and blood-forming organs, unspecified; Z79.899 Other long term (current) drug therapy; Z53.9 Procedure and treatment not carried out, unspecified reason
CPT/HCPCS: 36415; 80053; 81219; 81270; 81279; 81339; 82607; 82728; 82746; 83540; 83550; 83615; 85007; 85025; 99213

== ENCOUNTER → 2025-03-10 09:31 | Outpatient (BNVA) | payer OTHER, SELFPAY | PROVIDERS: PCP Electrodiagnostic Medicine; Visit Provider Internal Medicine Rheumatology | DX: Z87.39 Personal history of other diseases of the musculoskeletal system and connective tissue (principal); M54.89 Other dorsalgia; M25.50 Pain in unspecified joint | CPT/HCPCS: 99214 ==

== ENCOUNTER 2025-03-17 08:43 | Oncology outpatient (recurring) (ONCR) | payer OTHER, SELFPAY ==
[2025-03-01 13:11] LABS: Hematocrit 27.1 % (37-53); Hemoglobin 8.60 g/dL (11.27-16.99); Mean Corpuscular HGB Conc 31.7 g/dL (30-55); Mean Corpuscular Hemoglobin 30.8 pg (27-33); Mean Corpuscular Volume 97.1 fl (82-101); Platelet Count 62 10^3/cmm (157-399); Red Blood Count 2.79 10^6/uL (3.85-5.65); White Blood Count 8.21 10^3/uL (3.29-11.43)
[2025-03-01 13:27] LABS: Albumin Level 4.3 g/dL (3.5-5.2); Alkaline Phosphatase 51 U/L (40-130); Anion Gap 14.4 (5-19); Blood Urea Nitrogen 15 mg/dL (8-23); Calcium 8.8 mg/dL (8.5-10.5); Carbon Dioxide 25 mmol/L (22-29); Chloride 103 mmol/L (98-107); Creatinine Clr Calc Pharmacy 52.8815; Globulin 2.6 g/dL (1.3-4.6); Glucose 109 mg/dL (65-115); Osmolality Calculated 287 mOsm/kg (285-295); Potassium 4.4 mmol/L (3.5-5.1); Sodium 138 mmol/L (136-145); Total Protein 6.9 g/dL (6.6-8.7)
[2025-03-01 13:38] LABS: Alanine Aminotransferase < 5 U/L (0-41); Aspartate Amino Transferase 5 U/L (0-40)
[2025-03-01 13:41] LABS: Slide Review Slide Review Perform
[2025-03-01 14:03] LABS: Absolute Segmented Neutrophil 5.5 10/cmm (1.6-7.1); Atypical Lymphs 2.0 % (0-5); Band Neutrophils Absolute 0.2 10^3/cmm (0.0-1.2); Total Cells Counted 100 (0-100)
[2025-03-01 14:05] LABS: Anisocytosis 3+
[2025-03-01 14:09] LABS: Poikilocytosis 2+; Schistocytes Trace
[2025-03-15 11:54] LABS: Hematocrit 25.7 % (37-53); Hemoglobin 7.70 g/dL (11.27-16.99); Mean Corpuscular HGB Conc 30.0 g/dL (30-55); Mean Corpuscular Hemoglobin 29.4 pg (27-33); Mean Corpuscular Volume 98.1 fl (82-101); Platelet Count 49 10^3/cmm (157-399); Red Blood Count 2.62 10^6/uL (3.85-5.65); White Blood Count 6.74 10^3/uL (3.29-11.43)
[2025-03-15 12:12] LABS: Alanine Aminotransferase 27 U/L (0-41); Albumin Level 4.4 g/dL (3.5-5.2); Alkaline Phosphatase 61 U/L (40-130); Anion Gap 14.9 (5-19); Aspartate Amino Transferase 18 U/L (0-40); Blood Urea Nitrogen 16 mg/dL (8-23); Calcium 9.0 mg/dL (8.5-10.5); Carbon Dioxide 27 mmol/L (22-29); Chloride 103 mmol/L (98-107); Creatinine Clr Calc Pharmacy 49.1043; Globulin 2.9 g/dL (1.3-4.6); Glucose 84 mg/dL (65-115); Osmolality Calculated 292 mOsm/kg (285-295); Potassium 3.9 mmol/L (3.5-5.1); Sodium 141 mmol/L (136-145); Total Protein 7.3 g/dL (6.6-8.7)
[2025-03-15 12:52] LABS: Absolute Segmented Neutrophil 5.0 10/cmm (1.6-7.1); Atypical Lymphs 3.0 % (0-5); Band Neutrophils Absolute 0.5 10^3/cmm (0.0-1.2); Giant Platelets Trace; Macrocytosis 2+; Polychromasia 1+; Slide Review Slide Review Perform; Total Cells Counted 100 (0-100)
[2025-03-17] VITALS (10 sets, daily range): BP systolic 113–165; BP diastolic 61–81; PULSE 63–96; RESP 16–18; TEMP 36.2–36.6; O2SAT 93–97
== END 2025-03-21 23:59 | disposition home or self-care (01) ==
PROVIDERS: Internal Medicine Medical Oncology; PCP Electrodiagnostic Medicine; Visit Provider Nurse Practitioner Family
DX: D75.81 Myelofibrosis (principal); D64.9 Anemia, unspecified
CPT/HCPCS: 36415; 36430; 80053; 85007; 85025; 86850; 86900; 86920; 99214; J7050; J9999; P9016

== ENCOUNTER 2025-04-20 13:45 | Oncology outpatient (recurring) (ONCR) | payer OTHER, SELFPAY ==
[2025-03-29 11:19] LABS: Hematocrit 32.1 % (37-53); Hemoglobin 9.90 g/dL (11.27-16.99); Mean Corpuscular HGB Conc 30.8 g/dL (30-55); Mean Corpuscular Hemoglobin 28.9 pg (27-33); Mean Corpuscular Volume 93.9 fl (82-101); Platelet Count 54 10^3/cmm (157-399); Red Blood Count 3.42 10^6/uL (3.85-5.65); White Blood Count 7.45 10^3/uL (3.29-11.43)
[2025-03-29 11:34] LABS: Alanine Aminotransferase 38 U/L (0-41); Albumin Level 4.6 g/dL (3.5-5.2); Alkaline Phosphatase 69 U/L (40-130); Anion Gap 13.5 (5-19); Aspartate Amino Transferase 26 U/L (0-40); Blood Urea Nitrogen 18 mg/dL (8-23); Calcium 9.5 mg/dL (8.5-10.5); Carbon Dioxide 28 mmol/L (22-29); Chloride 102 mmol/L (98-107); Globulin 3.1 g/dL (1.3-4.6); Glucose 102 mg/dL (65-115); Osmolality Calculated 290 mOsm/kg (285-295); Potassium 4.5 mmol/L (3.5-5.1); Sodium 139 mmol/L (136-145); Total Protein 7.7 g/dL (6.6-8.7)
[2025-03-29 11:35] LABS: Slide Review Slide Review Perform
[2025-03-29 11:36] LABS: Absolute Segmented Neutrophil 4.8 10/cmm (1.6-7.1); Atypical Lymphs 3.0 % (0-5); Band Neutrophils Absolute 0.2 10^3/cmm (0.0-1.2); Giant Platelets 1+; Polychromasia Trace; Total Cells Counted 100 (0-100)
[2025-03-29 11:37] LABS: Anisocytosis 2+
[2025-04-19 10:10] LABS: Hematocrit 28.8 % (37-53); Hemoglobin 8.80 g/dL (11.27-16.99); Mean Corpuscular HGB Conc 30.6 g/dL (30-55); Mean Corpuscular Hemoglobin 28.8 pg (27-33); Mean Corpuscular Volume 94.1 fl (82-101); Platelet Count 32 10^3/cmm (157-399); Red Blood Count 3.06 10^6/uL (3.85-5.65); White Blood Count 6.95 10^3/uL (3.29-11.43)
[2025-04-19 10:24] LABS: Alanine Aminotransferase 44 U/L (0-41); Albumin Level 4.2 g/dL (3.5-5.2); Alkaline Phosphatase 72 U/L (40-130); Anion Gap 17.3 (5-19); Aspartate Amino Transferase 28 U/L (0-40); Blood Urea Nitrogen 17 mg/dL (8-23); Calcium 9.2 mg/dL (8.5-10.5); Carbon Dioxide 26 mmol/L (22-29); Chloride 101 mmol/L (98-107); Creatinine Clr Calc Pharmacy 53.2363; Globulin 3.2 g/dL (1.3-4.6); Glucose 151 mg/dL (65-115); Osmolality Calculated 294 mOsm/kg (285-295); Potassium 4.3 mmol/L (3.5-5.1); Sodium 140 mmol/L (136-145); Total Protein 7.4 g/dL (6.6-8.7)
[2025-04-19 10:56] LABS: Absolute Segmented Neutrophil 5.0 10/cmm (1.6-7.1); Atypical Lymphs 4.0 % (0-5); Band Neutrophils Absolute 0.5 10^3/cmm (0.0-1.2); Slide Review Slide Review Perform; Total Cells Counted 100 (0-100)
[2025-04-19 10:57] LABS: Giant Platelets Trace; Macrocytosis 2+; Ovalocytes Trace; Polychromasia 2+; Stomatocytes Trace
[2025-04-20 14:32] LABS: Cholesterol 136 mg/dL (0-200); HDL Cholesterol 31 mg/dL (60-100); Triglycerides 316 mg/dL (0-150)
[2025-04-20 15:09] LABS: Hepatitis B Surface Antigen Non-Reactive (Nonreactive)
== END 2025-04-20 23:59 | disposition home or self-care (01) ==
PROVIDERS: Internal Medicine Medical Oncology; PCP Electrodiagnostic Medicine; Visit Provider Nurse Practitioner Family
DX: Z53.9 Procedure and treatment not carried out, unspecified reason; Z79.899 Other long term (current) drug therapy; R03.0 Elevated blood-pressure reading, without diagnosis of hypertension; D75.81 Myelofibrosis; F17.220 Nicotine dependence, chewing tobacco, uncomplicated; L98.8 Other specified disorders of the skin and subcutaneous tissue; Z71.6 Tobacco abuse counseling
CPT/HCPCS: 36415; 80053; 80061; 83615; 85007; 85025; 86705; 86706; 87340; 99214; 99215

== ENCOUNTER 2025-05-04 13:49 | Oncology outpatient (recurring) (ONCR) | payer OTHER, SELFPAY ==
[2025-04-27 13:48] LABS: Hematocrit 27.1 % (37-53); Hemoglobin 8.40 g/dL (11.27-16.99); Mean Corpuscular HGB Conc 31.0 g/dL (30-55); Mean Corpuscular Hemoglobin 29.2 pg (27-33); Mean Corpuscular Volume 94.1 fl (82-101); Platelet Count 29 10^3/cmm (157-399); Red Blood Count 2.88 10^6/uL (3.85-5.65); White Blood Count 5.53 10^3/uL (3.29-11.43)
[2025-04-27 14:17] LABS: Slide Review Slide Review Perform
[2025-04-27 14:21] LABS: Absolute Segmented Neutrophil 2.9 10/cmm (1.6-7.1); Atypical Lymphs 2.0 % (0-5); Total Cells Counted 100 (0-100)
[2025-04-27 14:22] LABS: Anisocytosis 3+; Band Neutrophils Absolute 0.5 10^3/cmm (0.0-1.2); Smudge Cells 1+
[2025-05-03 14:15] LABS: Hematocrit 27.8 % (37-53); Hemoglobin 8.50 g/dL (11.27-16.99); Mean Corpuscular HGB Conc 30.6 g/dL (30-55); Mean Corpuscular Hemoglobin 28.6 pg (27-33); Mean Corpuscular Volume 93.6 fl (82-101); Platelet Count 35 10^3/cmm (157-399); Red Blood Count 2.97 10^6/uL (3.85-5.65); White Blood Count 6.40 10^3/uL (3.29-11.43)
[2025-05-03 14:25] LABS: Alanine Aminotransferase 47 U/L (0-41); Albumin Level 4.3 g/dL (3.5-5.2); Alkaline Phosphatase 52 U/L (40-130); Anion Gap 16.1 (5-19); Aspartate Amino Transferase 28 U/L (0-40); Blood Urea Nitrogen 18 mg/dL (8-23); Calcium 8.8 mg/dL (8.5-10.5); Carbon Dioxide 26 mmol/L (22-29); Chloride 103 mmol/L (98-107); Globulin 2.8 g/dL (1.3-4.6); Glucose 94 mg/dL (65-115); Osmolality Calculated 294 mOsm/kg (285-295); Potassium 4.1 mmol/L (3.5-5.1); Sodium 141 mmol/L (136-145); Total Protein 7.1 g/dL (6.6-8.7)
[2025-05-03 14:58] LABS: Slide Review Slide Review Perform
[2025-05-03 14:59] LABS: Total Cells Counted 100 (0-100)
[2025-05-03 15:00] LABS: Absolute Segmented Neutrophil 3.3 10/cmm (1.6-7.1); Band Neutrophils Absolute 0.6 10^3/cmm (0.0-1.2); Polychromasia 2+
[2025-05-03 15:02] LABS: Anisocytosis 2+
[2025-05-03 15:04] LABS: Macrocytosis Trace
[2025-05-03 15:05] LABS: Giant Platelets Trace
== END 2025-05-21 23:59 | disposition home or self-care (01) ==
PROVIDERS: PCP Electrodiagnostic Medicine; Visit Provider Nurse Practitioner Family
DX: D75.81 Myelofibrosis (principal); R03.0 Elevated blood-pressure reading, without diagnosis of hypertension; F17.220 Nicotine dependence, chewing tobacco, uncomplicated; L98.9 Disorder of the skin and subcutaneous tissue, unspecified; Z79.899 Other long term (current) drug therapy
CPT/HCPCS: 36415; 80053; 85007; 85025; 86480; 99214

== ENCOUNTER → 2025-05-20 10:37 | Outpatient (BNVA) | payer OTHER, SELFPAY | PROVIDERS: PCP Electrodiagnostic Medicine; Visit Provider Dermatology | DX: L82.1 Other seborrheic keratosis (principal); L57.8 Other skin changes due to chronic exposure to nonionizing radiation; D48.5 Neoplasm of uncertain behavior of skin | CPT/HCPCS: 11102; 99203 ==

== ENCOUNTER 2025-06-15 08:43 | Oncology outpatient (recurring) (ONCR) | payer OTHER, SELFPAY ==
[2025-05-25 13:18] LABS: Hematocrit 23.9 % (37-53); Hemoglobin 7.40 g/dL (11.27-16.99); Mean Corpuscular HGB Conc 31.0 g/dL (30-55); Mean Corpuscular Hemoglobin 29.2 pg (27-33); Mean Corpuscular Volume 94.5 fl (82-101); Nucleated Red Blood Cells % 12.3 %; Platelet Count 29 10^3/cmm (157-399); Red Blood Count 2.53 10^6/uL (3.85-5.65); White Blood Count 6.35 10^3/uL (3.29-11.43)
[2025-05-25 13:32] LABS: Alanine Aminotransferase 34 U/L (0-41); Albumin Level 4.3 g/dL (3.5-5.2); Alkaline Phosphatase 48 U/L (40-130); Anion Gap 14.6 (5-19); Aspartate Amino Transferase 24 U/L (0-40); Blood Urea Nitrogen 18 mg/dL (8-23); Calcium 8.6 mg/dL (8.5-10.5); Carbon Dioxide 24 mmol/L (22-29); Chloride 104 mmol/L (98-107); Globulin 2.4 g/dL (1.3-4.6); Glucose 100 mg/dL (65-115); Osmolality Calculated 288 mOsm/kg (285-295); Potassium 4.6 mmol/L (3.5-5.1); Sodium 138 mmol/L (136-145); Total Protein 6.7 g/dL (6.6-8.7)
[2025-05-25 13:37] LABS: Slide Review Slide Review Perform
[2025-05-26] VITALS (10 sets, daily range): BP systolic 106–122; BP diastolic 51–80; PULSE 64–77; RESP 16; TEMP 36.6–36.8; O2SAT 91–99
[2025-06-15 09:13] LABS: Hematocrit 31.2 % (37-53); Hemoglobin 9.60 g/dL (11.27-16.99); Mean Corpuscular HGB Conc 30.8 g/dL (30-55); Mean Corpuscular Hemoglobin 28.4 pg (27-33); Mean Corpuscular Volume 92.3 fl (82-101); Nucleated Red Blood Cells % 4.6 %; Platelet Count 30 10^3/cmm (157-399); Red Blood Count 3.38 10^6/uL (3.85-5.65); White Blood Count 7.41 10^3/uL (3.29-11.43)
[2025-06-15 09:27] LABS: Slide Review Slide Review Perform
[2025-06-15 09:52] LABS: Alanine Aminotransferase 38 U/L (0-41); Albumin Level 4.7 g/dL (3.5-5.2); Alkaline Phosphatase 55 U/L (40-130); Anion Gap 15.2 (5-19); Aspartate Amino Transferase 26 U/L (0-40); Blood Urea Nitrogen 19 mg/dL (8-23); Calcium 9.0 mg/dL (8.5-10.5); Carbon Dioxide 26 mmol/L (22-29); Chloride 101 mmol/L (98-107); Ferritin 654 ng/mL (30-400); Globulin 3.0 g/dL (1.3-4.6); Glucose 109 mg/dL (65-115); Iron 168 ug/dL (59-158); Osmolality Calculated 289 mOsm/kg (285-295); Potassium 4.2 mmol/L (3.5-5.1); Sodium 138 mmol/L (136-145); Total Iron Binding Capacity 256 mcg/dl; Total Protein 7.7 g/dL (6.6-8.7); Unsaturated Iron Binding 88 ug/dL (112-347); Vitamin B12 1075 pg/mL (232-1245)
== END 2025-06-20 23:59 | disposition home or self-care (01) ==
PROVIDERS: Internal Medicine Medical Oncology; PCP Electrodiagnostic Medicine; Visit Provider Nurse Practitioner Family
DX: D64.9 Anemia, unspecified (principal); R03.0 Elevated blood-pressure reading, without diagnosis of hypertension; F17.220 Nicotine dependence, chewing tobacco, uncomplicated; Z79.899 Other long term (current) drug therapy
CPT/HCPCS: 36415; 36430; 80053; 82607; 82728; 82746; 83540; 83550; 85025; 86850; 86900; 86920; 99213; 99214; J7050; J9999; P9016

== ENCOUNTER → 2025-06-22 12:42 | Outpatient (BNVA) | payer OTHER, SELFPAY | PROVIDERS: PCP Electrodiagnostic Medicine; Visit Provider Dermatology | DX: S00.80XA Unspecified superficial injury of other part of head, initial encounter (principal); X58.XXXA Exposure to other specified factors, initial encounter | CPT/HCPCS: 12052; 17311; 99212 ==

== ENCOUNTER 2025-07-06 09:18 | Oncology outpatient (recurring) (ONCR) | payer OTHER, SELFPAY ==
[2025-07-06] VITALS (9 sets, daily range): BP systolic 104–131; BP diastolic 43–79; PULSE 61–75; RESP 16; TEMP 36.4–37; O2SAT 94–99
[2025-07-06 09:40] LABS: Hematocrit 24.7 % (37-53); Hemoglobin 7.50 g/dL (11.27-16.99); Mean Corpuscular HGB Conc 30.4 g/dL (30-55); Mean Corpuscular Hemoglobin 28.6 pg (27-33); Mean Corpuscular Volume 94.3 fl (82-101); Red Blood Count 2.62 10^6/uL (3.85-5.65); White Blood Count 6.22 10^3/uL (3.29-11.43)
[2025-07-06 10:26] LABS: Alanine Aminotransferase 28 U/L (0-41); Albumin Level 4.3 g/dL (3.5-5.2); Alkaline Phosphatase 51 U/L (40-130); Anion Gap 15.3 (5-19); Aspartate Amino Transferase 22 U/L (0-40); Blood Urea Nitrogen 18 mg/dL (8-23); Calcium 8.8 mg/dL (8.5-10.5); Carbon Dioxide 25 mmol/L (22-29); Chloride 103 mmol/L (98-107); Ferritin 492 ng/mL (30-400); Globulin 2.6 g/dL (1.3-4.6); Glucose 100 mg/dL (65-115); Iron 94 ug/dL (59-158); Osmolality Calculated 290 mOsm/kg (285-295); Potassium 4.3 mmol/L (3.5-5.1); Sodium 139 mmol/L (136-145); Total Iron Binding Capacity 246 mcg/dl; Total Protein 6.9 g/dL (6.6-8.7); Unsaturated Iron Binding 152 ug/dL (112-347); Vitamin B12 697 pg/mL (232-1245)
[2025-07-06 10:27] LABS: Platelet Count 27 10^3/cmm (157-399)
[2025-07-06 10:35] LABS: Absolute Segmented Neutrophil 4.0 10/cmm (1.6-7.1); Total Cells Counted 100 (0-100)
[2025-07-06 10:36] LABS: Atypical Lymphs 4.0 % (0-5); Band Neutrophils Absolute 0.1 10^3/cmm (0.0-1.2)
[2025-07-06 10:37] LABS: Polychromasia 1+
[2025-07-06 10:38] LABS: Anisocytosis 3+; Macrocytosis 1+; Microcytosis 1+; Poikilocytosis 1+
[2025-07-06] MEDS: deferoxamine 2 GM in sodium chloride 0.9% 250 ML IV (12:59)
== END 2025-07-21 23:59 | disposition home or self-care (01) ==
PROVIDERS: Nurse Practitioner; PCP Electrodiagnostic Medicine; Visit Provider Nurse Practitioner Family
DX: D64.9 Anemia, unspecified (principal); F17.220 Nicotine dependence, chewing tobacco, uncomplicated; D69.6 Thrombocytopenia, unspecified; D75.81 Myelofibrosis; R03.0 Elevated blood-pressure reading, without diagnosis of hypertension; E61.1 Iron deficiency; Z79.899 Other long term (current) drug therapy
CPT/HCPCS: 36430; 80053; 82607; 82728; 82746; 83540; 83550; 85007; 85025; 86850; 86900; 86920; 96365; 96366; 99214; J0895; J7050; J9999; P9016